=== PATIENT | male | born 1955 | race Caucasian/White ===

== ENCOUNTER 2025-05-09 11:03 | Outpatient (CLI) | payer MEDICARE ==
[~2025-05-09 11:03] MED LIST: barium sulfate 340gm for oral suspension 1 BOTTLE SUSP.RECON PO ONE
--- NOTE | 2025-05-09 18:10 | RADIOLOGY REPORT ---
EXAM: ESOPHAGRAM HISTORY: ESOPHAGRAM: FT 3.8 MINUTES, DOSE:28.79 mGy TECHNIQUE: The patient was positioned both prone and upright at the fluoroscopy unit and instructed to swallow thick and then thin barium contrast material under fluoroscopic examination. FINDINGS: Normal swallow reflex. No aspiration. There is normal distensibility and evidence of a normal mucosal pattern throughout the esophagus. At the mid cervical spine there is a slight area of tortuosity of the proximal esophagus which may represent the patient's perceived holdup sensation during certain large pills swallowed. There are no abnormal tertiary contractions. No mucosal ulcerations seen throughout the esophagus. Contrast proceeded appropriately through the gastric lumen without restriction. No gastroesophageal reflux was noted while the patient was in upright position. There is a small reducible axial hiatal hernia demonstrated. The gastric contour and mucosal pattern as well as duodenal mucosal pattern appear unremarkable. There is normal duodenal bulb distensibility. IMPRESSION: 1. Normal esophogram. However there is an area of slight tortuosity at the proximal cervical esophagus. This may represent the patient's perceived fullness when swallowing certain large pills. A modified barium swallow study may be helpful for further evaluation. No reflux seen. Small reducible axial hiatal hernia
== END 2025-05-09 23:59 | disposition home or self-care (01) ==
LOC: RAD 11:03
PROVIDERS: ATTEND Radiology Diagnostic Radiology
DX: R13.10 Dysphagia, unspecified (principal)
CPT/HCPCS: 74220